=== PATIENT | female | born 1980 | race American Indian/Alaskan Native ===

== ENCOUNTER 2017-02-18 14:42 | Outpatient (CLI) | payer MEDICAID, OTHER | END 2017-02-18 14:43 | disposition home or self-care (01) | LOC: LABHHL 14:42 | PROVIDERS: ATTEND Surgery | DX: N63 Unspecified lump in breast (principal) | CPT/HCPCS: 88305; 88342 ==

== ENCOUNTER 2017-03-16 06:46 | Day surgery (SDC) | payer MEDICAID ==
--- NOTE | 2017-03-16 07:17 | Anesthesia Day of Surgery ---
Anesthesia Day of Surgery - Day of Surgery Patient Examined: Yes Patient H&P Reviewed: Yes Patient is NPO: Yes
--- NOTE | 2017-03-16 07:17 | Post Anesthesia Evaluation ---
- Post Anesthesia Evaluation Patient Participated: Yes Airway Patent: Yes Stable Respiratory Function: Yes Temp > 96.8F: Yes Pain Manageable: Yes Adequeate Hydration: Yes Anesthesia Complications: No Block Receding Appropriately: Not Applicable
--- NOTE | 2017-03-16 07:17 | Anesthesia Consultation ---
Anesthesia Consult and Med Hx Date of service: 03/16/17 - Airway Anesthetic Teeth Evaluation: Good ROM Head & Neck: Adequate Mental/Hyoid Distance: Adequate Mallampati Class: Class II Intubation Access Assessment: Probably Good - Pulmonary Exam CTA: Yes - Cardiac Exam Cardiac Exam: RRR - Pre-Operative Health Status ASA Pre-Surgery Classification: ASA2 Proposed Anesthetic Plan: General - Pulmonary Hx Smoking: No Hx Sleep Apnea: No (ARABELLA PRE SCREEN NEGATIVE) - Cardiovascular System Hx Hypertension: No Hx Valvular Heart Disease: Yes (MVP) Hx Heart Murmur: Yes (CAUSES NO PROBLEMS) - Other Systems Hx Cancer: No
[2017-03-16] MEDS ORDERED: DILAUDID IV PRN (07:19)
[2017-03-16] MEDS ORDERED: XYLOCAINE MPF 2% ONE (07:26)
[2017-03-16] MEDS ORDERED: DIPRIVAN 10 MG/ML IV ONE (07:26)
[2017-03-16] MEDS ORDERED: SUBLIMAZE ONE (07:26)
[2017-03-16] MEDS ORDERED: XYLOCAINE 1% 20 mL ONE (07:58)
[2017-03-16] MEDS ORDERED: MARCAINE 0.25% INFILTRATI ONE ×2 (07:59→08:31)
[2017-03-16] MEDS ORDERED: ANCEF/STERILE WATER 2 GM/20 ML IV NR (08:00)
[2017-03-16] MEDS ORDERED: NACL 0.9% 1000 ML 1,000 ML IV SCH (08:00)
[2017-03-16] MEDS ORDERED: ZOFRAN IV PRN (08:00)
[2017-03-16] MEDS ORDERED: NEO SYNEPHRINE/NS Syringe(OR USE) IV ONE (08:00)
[2017-03-16] MEDS ORDERED: VERSED IV NR (08:00)
[2017-03-16] MEDS ORDERED: NORCO 5/325 PO PRN (08:00)
[2017-03-16] MEDS ORDERED: ZOFRAN ONE (08:27)
[2017-03-16] MEDS ORDERED: DECADRON ONE (08:27)
[2017-03-16] MEDS ORDERED: WATER FOR IRRIG STERILE IR ONE (08:31)
[2017-03-16] MEDS ORDERED: XYLOCAINE 1% 20 mL INFILTRATI ONE (08:31)
--- NOTE | 2017-03-16 10:44 | Short Stay Summary ---
Short Stay Documentation Date of service: 03/16/17 - History H&P: obtained from office - Allergies and Medications Current Medications: Allergies Sulfa (Sulfonamide Antibiotics) Allergy (Verified 03/10/17 15:51) Hives Home Medications Medication Instructions Recorded Confirmed Last Taken Type HYDROcodone/APAP 5-325 [Emily 1 each PO Q6HR PRN #30 tablet 03/16/17 Unknown Rx 5/325] Active Medications Cefazolin Sodium (Ancef/Sterile Water 2 Gm/20 Ml) 2 gm IV PREOP NR Stop: 03/16/17 21:00 Hydromorphone HCl (Dilaudid) 0.5 mg IV Q10MIN PRN PRN Reason: Pain , Severe (7-10) Stop: 03/16/17 12:00 Sodium Chloride (Nacl 0.9% 1000 Ml) 1,000 mls @ 100 mls/hr IV DIRECT YOUSUF Last Admin: 03/16/17 07:55 Dose: 100 mls/hr Midazolam HCl (Versed) 2 mg IV PREOP NR Stop: 03/16/17 23:59 Last Admin: 03/16/17 07:55 Dose: 2 mg - Brief post op/procedure progress note Date of procedure: 03/16/17 Pre-op diagnosis: Right breast mass Post-op diagnosis: same Procedure: Right breast excisional biopsy Anesthesia: GETA Findings: Palpable known right breast mass at the 9:30 position 6 cm from the nipple Surgeon: MARTY LEE ( ) Estimated blood loss: minimal Pathology: list Specimen disposition: to lab Condition: stable - Disposition Condition at discharge: Good Disposition: DC-01 TO HOME OR SELFCARE Short Stay Discharge Plan Activity: other (no heavy lifting) Diet: regular Wound: other (keep incision clean and dry; may shower in 24 hours; no baths, pools or lakes; do not rub or scrub incision) Follow up with: STU HUERTA MD [Primary Care Provider] - 7 Days MARTY LEE MD [Staff Physician] - 7 Days Prescriptions: HYDROcodone/APAP 5-325 [Emily 5/325] 1 each PO Q6HR PRN #30 tablet PRN Reason: Pain
--- NOTE | 2017-03-16 10:53 | Operative Report ---
Operative Report Operative Report: Date of procedure:March 16, 2017 Pre-operative diagnosis: Right breast mass of the upper outer quadrant Post-operative diagnosis: Same Procedure name(s): Right breast excisional biopsy of upper outer quadrant breast mass Surgeon: Magdalena Cristina MD Anesthesia: General Findings: Known right breast mass of the upper outer quadrant at the 9:30 position 6 cm from the nipple with excisional biopsy Complications: None EBL: Minimal Disposition: PACU in good condition Indications for operative procedure: This is a 37-year-old premenopausal lady with known right breast mass at the upper outer quadrant. Recent ultrasound- guided needle core biopsy was performed with findings of focal atypia. Recommendations were for excisional biopsy. Procedure in detail: The patient was taken to the operating room. Gen. anesthesia was administered. The right breast was prepped and draped in the normal sterile operative fashion. Breast mass was identified by ultrasound which was also palpable at the 9:30 position 6 cm from the nipple. Timeout was performed. A periareolar lateral skin incision was made with a 15 blade knife with dissection taken down to the subcutaneous tissues. The Bovie cautery was used to open the subcutaneous tissues. Palpable breast mass was identifed and appropriatly dissected free with the aid of the Bovie cautery. Specimen was then sent to pathology. Hemostasis was obtained with the aid of the Bovie cautery. Breast cavity was irrigated and suctioned. The subcutaneous tissues were approximated and closed using interrupted 3-0 Vicryl and skin brought together and closed using a running 4-0 Monocryl and skin affix. She tolerated the surgery very well and was awakened from anesthesia without any complications and transported to PACU in good condition.
[2017-03-16 12:35] VITALS: BP 101/59
== END 2017-03-16 12:45 | disposition home or self-care (01) ==
LOC: OR 06:46
PROVIDERS: ATTEND Surgery
DX: N60.21 Fibroadenosis of right breast (principal); Z88.2 Allergy status to sulfonamides; Z86.79 Personal history of other diseases of the circulatory system; Z91.09 Other allergy status, other than to drugs and biological substances
CPT/HCPCS: 19120; 88305; J0690; J1100; J2250; J2370; J2405; J2704; J3010; J7030; 88307

== ENCOUNTER 2019-09-18 08:46 | Outpatient (CLI) | payer MEDICAID ==
--- NOTE | 2019-09-18 10:24 | Mammography Report ---
BILATERAL DIGITAL DIAGNOSTIC MAMMOGRAM -- 09/18/2019 BILATERAL COMPLETE BREAST ULTRASOUND INDICATION: Right breast solid mass at the 12:00 position noted on prior exam and multiple bilateral cysts. TECHNIQUE: Digital bilateral mammographic imaging was performed. COMPARISON: 03/29/2019, 02/28/2019, 02/12/2019, 03/14/2018, 02/27/2018, 02/24/2017. FINDINGS: Breast Density: The breasts are extremely dense, which lowers the sensitivity of mammography. There are numerous circumscribed and obscured oval masses in both breasts. The majority of these show fluctuating size over multiple prior exams and appear most consistent with cysts. Additionally, scat tered benign-appearing calcifications are noted throughout both breasts. No definite new suspicious f inding, however the presence of extremely dense breast tissue limits evaluation. An ultrasound will b e performed for further evaluation. Ultrasound Findings: Complete sonographic evaluation of all four quadrants and retroareolar region wa s performed. In the right breast at the 12:00 position, 6 cm from the nipple, there is a 1.2 x 1.2 x 0.6 cm oval slightly lobulated hypoechoic solid appearing mass. This likely corresponds with the prev iously noted finding which measured 1.3 cm on prior outside exam. The appearance is most suggestive o f a fibroadenoma and relative stability over a short period of time would suggest a benign etiology. In the right breast at the 10:00 position, 3 cm from the nipple, there is a complicated cystic struct ure measuring up to 1 x 0.8 x 0.5 cm. This either represents a cluster of microcysts or multiple ji cent complicated cysts. No definite solid component is identified. In the left breast at the 8:00 pos ition, 3 cm from the nipple, there is a 1.2 x 0.3 x 0.9 cm circumscribed hypoechoic lesion. It is dif ficult to determine whether this represents a debris-filled duct or cystic lesion. No definite sales management intern al vascular flow could be demonstrated. Multiple benign-appearing simple cysts are additionally noted throughout both breasts. IMPRESSION: A previously noted right breast 12:00 solid lesion appears not significantly changed compared to prio r outside measurements. The appearance remains most suggestive of a fibroadenoma. A six-month follow- up ultrasound is recommended to assess stability. There are two probably benign complicated cystic lesions. These include a right breast 10:00 lesion a nd left breast 8:00 lesion. A 6 month follow-up ultrasound of these findings recommended as well. BI-RADS Category 3: Probably Benign. A "normal" or negative report should not discourage follow up or biopsy of a clinically significant f inding. A written summary of these findings will be mailed to the patient. The patient will be entered into a mammography reporting system which will generate a reminder letter for the patient's next appointmen t at the appropriate interval. According to the [employer], yearly mammograms are recommended starting at age 40 and continuing as long as a woman is in good health. Breast MRI is recommended for women with an malik roximately 20-25% or greater lifetime risk of breast cancer, including women with a strong family his tory of breast or ovarian cancer and women who have been treated for Hodgkin's disease. Signer Name: Moshe Crowder MD Signed: 09/18/2019 10:20 AM Workstation Name: [id number]
== END 2019-09-18 08:47 | disposition home or self-care (01) ==
LOC: SPVWC 08:46
PROVIDERS: ATTEND Surgery
DX: R92.2 Inconclusive mammogram (principal)
CPT/HCPCS: 77066

== ENCOUNTER 2021-03-05 13:25 | Outpatient (CLI) | payer MEDICAID ==
--- NOTE | 2021-03-05 16:58 | Mammography Report ---
DIGITAL SCREENING MAMMOGRAM WITH TOMOSYNTHESIS WITH CAD, 03/05/2021 CLINICAL INFORMATION / INDICATION: Screening TECHNIQUE: Digital bilateral 2D and 3D mammography with tomosynthesis was obtained in the craniocaud al and mediolateral oblique projections. Computer-Aided Detection (CAD) analysis was used for interp retation of this study. COMPARISON: 03/04/2020 FINDINGS: Breast Density: The breasts are extremely dense, which lowers the sensitivity of mammography. No dominant mass, suspicious calcifications, or architectural distortion in either breast. Right density is mildly less prominent. Bilateral calcifications are not significantly changed. Benig n-appearing changing nodularity is again seen on the left in multiple areas. IMPRESSION: No mammographic evidence of malignancy. Follow up recommendation: Routine yearly BI-RADS Category 2: Benign. A "normal" or negative report should not discourage follow up or biopsy of a clinically significant f inding. A written summary of these findings will be mailed to the patient. The patient will be entered into a mammography reporting system which will generate a reminder letter for the patient's next appointmen t at the appropriate interval. The [employer] recommends yearly mammograms starting at age 40 and continuing as l elli as a woman is in good health. Breast MRI is recommended for women with an approximate 20-25% or greater lifetime risk of breast cancer, including women with a strong family history of breast or ova laureano cancer or who have been treated for Hodgkin's disease. Signer Name: Emery Oakley MD Signed: 03/05/2021 4:53 PM Workstation Name: [id number]
== END 2021-03-05 13:26 | disposition home or self-care (01) ==
LOC: SPVWC 13:25
PROVIDERS: ATTEND Surgery
DX: Z12.31 Encounter for screening mammogram for malignant neoplasm of breast (principal); N64.89 Other specified disorders of breast
CPT/HCPCS: 77063; 77067